=== PATIENT | female | born 1965 | race Caucasian/White ===

== ENCOUNTER 2020-11-16 21:31 | Emergency (ER) | payer OTHER ==
[2020-11-17] MEDS ORDERED: IBUPROFEN800 MG PO (02:54)
[2020-11-17] MEDS ORDERED: CYCLOBENZAPRINE5 MG PO (02:54)
== END 2020-11-17 03:15 | disposition home or self-care (01) ==
LOC: ER1 21:31
DX: M54.32 Sciatica, left side (principal); I10 Essential (primary) hypertension; F17.200 Nicotine dependence, unspecified, uncomplicated; Z90.49 Acquired absence of other specified parts of digestive tract; Z90.710 Acquired absence of both cervix and uterus
CPT/HCPCS: 96372; 99283; J1885